=== PATIENT | male | born 1950 | race Caucasian/White ===

== ENCOUNTER 2016-12-25 13:45 | Emergency (ER) | payer MEDICARE, OTHER ==
--- NOTE | 2016-12-25 14:12 | Emergency Department Record ---
History of Present Illness - General Chief complaint: Male Urogenital Problem Stated complaint: THINK I HAVE A KIDNEY STONE Time Seen by Provider: 12/25/16 14:12 Source: Patient Mode of Arrival: Ambulatory Limitations: No limitations - History of Present Illness Initial comments: The patient is here due to L lower back pain for the last 3 days. The pain is sharp and stabbing and increases with movement and twisting. He denies any AP, nausea, vomiting, fever or dysuria. The patient does have a hx of kidney stones and feels like he may have another one. MD Complaint: Other Onset/Timin -: Days(s) Location: Left flank Radiation: Back Severity scale (1-10): 3 Quality: Aching Consistency: Constant Improves with: None Worsens with: Movement, Other Reports: Denies other symptoms - Related Data Home Medications Medication Instructions Recorded Confirmed Last Taken Amlodipine Besylate/Benazepril 1 each PO BID 01/10/14 12/25/16 01/10/14 09:00 [Lotrel 5-20 mg Capsule] Ascorbic Acid [Vitamin C] 500 mg PO DAILY 01/10/14 12/25/16 01/10/14 09:00 Carvedilol Phosphate [Coreg Cr] 10 mg PO DAILY 01/10/14 12/25/16 01/10/14 09:00 Cholecalciferol (Vitamin D3) 2,000 unit PO DAILY 01/10/14 12/25/16 01/10/14 09: 00 [Vitamin D] Clonidine HCl [Catapres] 0.2 mg PO BID 01/10/14 12/25/16 02/28/15 Eszopiclone [Lunesta] 3 mg PO Q48H 01/10/14 12/25/16 01/08/14 21:00 Latanoprost [Xalatan] 2.5 ml OP QHS 01/10/14 12/25/16 02/28/15 Magnesium Oxide [Magnesium] 800 mg PO DAILY 01/10/14 12/25/16 01/10/14 09:00 [place]-3 Fatty Acids/Fish Oil [Fish 1 each PO BID 01/10/14 12/25/16 01/10/14 09: 00 Oil 1,000 mg Softgel] Potassium Chloride [Klor-Con M20] 40 meq PO BID 01/10/14 12/25/1602/28/15 Loratadine [Claritin] 10 mg PO DAILY 02/21/15 12/25/16 Unknown Multivitamin [Multi-Vitamin Daily] 1 each PO DAILY 02/21/15 12/25/16 Unknown Timolol Maleate [Timoptic] 5 ml OP QAM 02/21/15 12/25/16 Unknown Finasteride [Proscar] 5 mg PO QHS 03/01/15 12/25/16 02/28/15 Allergies Allergy/AdvReac Type Severity Reaction Status Date / Time Penicillins [PENICILLINS] Allergy Severe "I passed Verified 02/19/15 15:25 out" Travel Screening - Travel/Exposure Within Last 30 Days Have you traveled within the last 30 days?: No Review of Systems Constitutional: Denies: Chills, Fever, Malaise Eyes: Denies: Eye discharge ENT: Denies: Congestion, Throat pain Respiratory: Denies: Cough, Dyspnea Past Medical History - SOCIAL HISTORY Smoking Status: Former smoker - RESPIRATORY Hx Respiratory Disorders: Yes Hx Sleep Apnea: Yes Hx of CPAP: Yes (pt doesn't wear it) - CARDIOVASCULAR Hx Cardio Disorders: Yes Comment:: Afib - NEURO Hx Neuro Disorders: Yes Comment:: tested for why passing out --unable to find out cause - GI Hx GI Disorders: Yes Hx Wt Loss/Wt Gain: Yes (25lb gain since retired 1yr ago) - Hx Genitourinary Disorders: Yes Hx Kidney Stones: Yes Hx Prostate Problems: Yes (BPH) - ENDOCRINE Hx Endocrine Disorders: No - MUSCULOSKELETAL Hx Musculoskeletal Disorders: Yes Hx Back Injury: Yes - PSYCH Hx Psych Problems: Yes Hx Anxiety: Yes - HEMATOLOGY/ONCOLOGY Hx Hematology/Oncology Disorders: No Family Medical History Any Significant Family History?: Yes Hx Cancer: Father Physical Exam - General General Appearance: Alert, Oriented x3, Cooperative, No acute distress - Head Head exam: Atraumatic, Normocephalic, Normal inspection - Eye Eye exam: Normal appearance, PERRL - ENT ENT exam: Normal exam, Mucous membranes moist, Normal external ear exam, Normal orophraynx, TM's normal bilaterally Throat exam: Normal inspection. negative: Tonsillar erythema, Tonsillar exudate - Neck Neck exam: Normal inspection, Full ROM. negative: Tenderness - Respiratory Respiratory exam: Normal lung sounds bilaterally. negative: Respiratory distress - Cardiovascular Cardiovascular Exam: Regular rate, Normal rhythm, Normal heart sounds - GI/Abdominal GI/Abdominal exam: Soft, Normal bowel sounds. negative: Rebound, Rigid, Tenderness - Back Back exam: Reports: Normal inspection, Paraspinal tenderness (There is L lower lumbar paraspinal tenderness that exactly reproduces the patient's flank pain.) . Denies: Vertebral tenderness - Neurological Neurological exam: Alert, Normal gait. negative: Abnormal gait, Motor sensory deficit Course Vital Signs 12/25/16 12/25/16 14:01 14:04 Temperature 98.0 F Pulse Rate 60 Respiratory 18 Rate Blood Pressure 214/119 [Left Arm] Pulse Ox 98 - Reevaluation(s) Reevaluation #1: The patient is resting comfortably with no pain or discomfort unless he is moving. I explained to him that his workup is all WNL's for him. I told him he clearly does not have a kidney stone and I do believe his pain is due to a muscle strain. He is to see his PCP next week for recheck and to also recheck his BP due to it being elevated. The patient states he has severe HTN and it normally is high like it is today. 12/25/16 15:39 Medical Decision Making - Data Complexity MDM Data: Labs Ordered and/or Reviewed, X-Ray Ordered and/or Reviewed - Lab Data Result diagrams: 12/25/16 14:35 12/25/16 14:35 - Radiology Data Radiology results: Report reviewed (Abd CT: Multiple old changes with no acute stone or hydro.) Disposition Disposition: Discharge Clinical Impression: Strain of muscle, fascia and tendon of lower back, initial encounter Disposition: Home, Self-Care Condition: (1) Good Instructions: Low Back Strain (ED) Additional Instructions: Please take your home pain medicines as needed. Please see your PCP next week for recheck and to also recheck your blood pressure. Return to the ER if worse. Forms: Patient Portal Access Time of Disposition: 15:38
[2016-12-25] MEDS ORDERED: ACETAMINOPHEN 325 MG TAB PO ONE (14:20)
[2016-12-25 14:54] LABS: BASO % 0.5 % (0-6); EOS % 1.3 % (0-6); GRAN % 66.8 % (47-80); HEMATOCRIT 40.9 % (42.0-52.0); HEMOGLOBIN 13.7 gm/dl (14.0-18.0); LYMPH % 24.7 % (16-45); MEAN CELL VOLUME 91.3 fl (81-97); MEAN CORPUSCULAR HGB CONC 33.5 g/dl (32-36); MEAN PLATELET VOLUME 9.7 fl (7.4-10.4); MONO % 6.7 % (0-9); PLATELET COUNT 218 K/uL (130-400); RED BLOOD COUNT 4.48 M/uL (4.40-5.70); RED CELL DISTRIBUTION WIDTH 13.1 % (11.5-14.5); URINE APPEARANCE SL CLOUDY; URINE BILIRUBIN NEGATIVE (NEGATIVE); URINE BLOOD NEGATIVE (NEGATIVE); URINE COLOR YELLOW; URINE GLUCOSE (UA) NEGATIVE (NEGATIVE); URINE KETONE NEGATIVE (NEGATIVE); URINE LEUKOCYTE ESTERASE NEGATIVE (NEGATIVE); URINE NITRITE NEGATIVE (NEGATIVE); URINE PROTEIN NEGATIVE (NEGATIVE); URINE UROBILINOGEN 0.2 E.U./dL (0.20 - 1.00); WHITE BLOOD COUNT W/O DIFF 6.2 K/uL (4.2-12.2)
[2016-12-25 14:55] LABS: MEAN CORPUSCULAR HEMOGLOBIN 30.5 pg (27-33)
[2016-12-25 15:05] LABS: ANION GAP 6.1 (7-16); BLOOD UREA NITROGEN 20 mg/dL (9-20); CARBON DIOXIDE 29.9 mmol/L (22-30); CREATININE 0.8 mg/dL (0.66-1.25); EST GLOMERULAR FILTRATION RATE > 60 ml/min; GLUCOSE,RANDOM 96 mg/dL (70-110)
== END 2016-12-25 16:00 | disposition home or self-care (01) ==
LOC: ER 13:45
DX: S39.012A Strain of muscle, fascia and tendon of lower back, initial encounter (principal); X58.XXXA Exposure to other specified factors, initial encounter; I10 Essential (primary) hypertension; Z87.891 Personal history of nicotine dependence; Z87.442 Personal history of urinary calculi
CPT/HCPCS: 74176; 80048; 81003; 85025; 99283; 99284

== ENCOUNTER 2017-05-13 12:01 | Day surgery (SDC) | payer MEDICARE, OTHER ==
[2017-05-13] MEDS ORDERED: FENTANYL PF 100MCG/2ML VIAL IV ONE (14:00)
[2017-05-13] MEDS ORDERED: PROPOFOL 10 MG/ML VIAL IV ONE (14:00)
[2017-05-13] MEDS ORDERED: LIDOCAINE 2% MDV (20MG/ML) 20ML VIAL IV ONE (14:00)
--- NOTE | 2017-05-18 17:31 | Operative Note ---
DATE OF SURGERY: 05/13/2017 OPERATION: ESOPHAGOGASTRODUODENOSCOPY with biopsy. PREOPERATIVE DIAGNOSIS: Heartburn and dysphagia? POSTOPERATIVE DIAGNOSES: 1. Erythematous GE junction. 2. Rule out eosinophilic esophagitis. PROCEDURE: After informed consent was obtained from the patient, he was placed in the left lateral decubitus position in the endoscopy suite, sedated and monitored by the department of anesthesia. Once sedated, a well-lubricated [id number] gastroscope was placed in the posterior oropharynx and under direct visualization passed to the proximal esophagus. The endoscope was advanced through the proximal, mid, and distal esophagus. The GE junction demonstrated some mild erythema and slight irregularity. The remainder of the esophagus was unremarkable. No strictures, varices, or mass lesions were seen. The gastric body and the antrum as well as the pylorus, duodenal bulb, and sweep were unremarkable. J-turn views of the proximal stomach were unremarkable. The endoscope was then straightened. The GE junction was biopsied. The mid esophagus was biopsied with no new findings or abnormalities identified upon retraction of the endoscope. RECOMMENDATIONS: I would suggest the patient resume his PPI and we will await the results of biopsies. As always, thank you for allowing me to participate in the healthcare of your patients. CC: Bialee DICKENS
== END 2017-05-13 13:50 | disposition home or self-care (01) ==
LOC: HOP 12:01
PROVIDERS: ATTEND Internal Medicine Gastroenterology
DX: K21.0 Gastro-esophageal reflux disease with esophagitis (principal); K31.89 Other diseases of stomach and duodenum; K22.8 Other specified diseases of esophagus
CPT/HCPCS: 43235; 00740; 88305; 88312; 88313; J3010

== ENCOUNTER 2017-10-04 15:11 | Emergency (ER) | payer MEDICARE, OTHER ==
--- NOTE | 2017-10-04 15:51 | Emergency Department Record ---
History of Present Illness - General Chief complaint: Flank Pain Stated complaint: POSS KIDNEY STONE Time Seen by Provider: 10/04/17 15:50 Source: Patient Mode of Arrival: Ambulatory Limitations: No limitations - History of Present Illness Initial comments: The patient is here due to a 2 day hx of R flank pain with intermittent radiation to the RLQ. The pain is sharp and stabbing. The onset was yesterday and today the pain is improved and now only present with movement or twisting. There is no AP, fever, chills, nausea, vomiting, diarrhea but the patient does have mild dysuria. MD Complaint: Other Onset/Timin -: Days(s) Location: Right flank Radiation: RLQ Severity scale (1-10): 4 Quality: Aching Consistency: Constant Improves with: None Worsens with: None Reports: Denies other symptoms - Related Data Home Medications Medication Instructions Recorded Confirmed Last Taken Dabigatran Etexilate Mesylate 150 mg PO DAILY 10/04/17 10/04/17 Unknown [Pradaxa] Lorazepam [Ativan] 1 mg PO QHS 10/04/17 10/04/17 Unknown Zolpidem Tartrate [Ambien] 10 mg PO QHS 10/04/17 10/04/17 Unknown Allergies Allergy/AdvReac Type Severity Reaction Status Date / Time Penicillins [PENICILLINS] Allergy Severe "I passed Verified 02/19/15 15:25 out" Travel Screening - Travel/Exposure Within Last 30 Days Have you traveled within the last 30 days?: No Review of Systems Constitutional: Denies: Chills, Fever Eyes: Denies: Eye discharge ENT: Denies: Congestion Respiratory: Denies: Cough, Dyspnea Past Medical History - SOCIAL HISTORY Smoking Status: Former smoker - RESPIRATORY Hx Respiratory Disorders: Yes Hx Sleep Apnea: Yes Hx of CPAP: Yes (pt doesn't wear it) - CARDIOVASCULAR Hx Cardio Disorders: Yes Hx Hypertension: Yes Hx Irregular Heartbeat: Yes Comment:: Afib - NEURO Hx Neuro Disorders: Yes Comment:: tested for why passing out --unable to find out cause - GI Hx GI Disorders: No Hx Wt Loss/Wt Gain: Yes - Hx Genitourinary Disorders: Yes Hx Kidney Stones: Yes Hx Prostate Problems: Yes (BPH) - ENDOCRINE Hx Endocrine Disorders: No - MUSCULOSKELETAL Hx Musculoskeletal Disorders: Yes Hx Back Injury: Yes - PSYCH Hx Psych Problems: Yes Hx Anxiety: Yes - HEMATOLOGY/ONCOLOGY Hx Hematology/Oncology Disorders: No Family Medical History Any Significant Family History?: Yes Hx Cancer: Father Physical Exam - General General Appearance: Alert, Oriented x3, Cooperative, No acute distress - Head Head exam: Atraumatic, Normocephalic, Normal inspection - Eye Eye exam: Normal appearance, PERRL - Neck Neck exam: Normal inspection, Full ROM. negative: Tenderness - Respiratory Respiratory exam: Normal lung sounds bilaterally. negative: Respiratory distress - Cardiovascular Cardiovascular Exam: Regular rate, Normal rhythm, Normal heart sounds - GI/Abdominal GI/Abdominal exam: Soft, Normal bowel sounds. negative: Distended, Rebound, Rigid, Tenderness - Extremities Extremities exam: Normal inspection, Full ROM, Normal capillary refill. negative: Tenderness - Back Back exam: Reports: Normal inspection, Full ROM. Denies: CVA tenderness (L), Muscle spasm, Rash noted, Tenderness Course Vital Signs 10/04/17 15:28 Temperature 98.2 F Pulse Rate 65 Respiratory 18 Rate Blood Pressure 175/109 Pulse Ox 99 - Reevaluation(s) Reevaluation #1: The patient is doing very well at this time. He denies any pain or discomfort and is ready for home. I did explain to him the CT is neg for any acute changes and he is to see his PCP later this week for recheck. 10/04/17 18:04 10/04/17 18:04 Medical Decision Making - Data Complexity MDM Data: Labs Ordered and/or Reviewed, X-Ray Ordered and/or Reviewed - Lab Data Result diagrams: 10/04/17 16:10 10/04/17 16:10 - Radiology Data Radiology results: Report reviewed (Abd CT: Neg for any acute abnormality.) Disposition Disposition: Discharge Clinical Impression: Flank pain, acute Disposition: Home, Self-Care Condition: (2) Stable Instructions: Flank Pain (ED) Additional Instructions: Please continue your regular medicines for pain and your blood pressure. Please see your PCP for recheck later this week. Return to the ER for any worsening symptoms. Forms: Patient Portal Access Time of Disposition: 18:05 Quality - Quality Measures Quality Measures: N/A - Blood Pressure Screening View Details: Yes Does Patient Have Any of the Following: No, Active Dx of HTN Blood Pressure Classification: Hypertensive Reading Systolic Measurement: 175 Diastolic Measurement: 109 Screening for High Blood Pressure: Patient Exclusion, Hx of HTN [R7324]
[2017-10-04] MEDS ORDERED: ONDANSETRON HCL IV 4 MG/2 ML VIAL IV ONE (15:54)
[2017-10-04] MEDS ORDERED: SODIUM CHLORIDE 0.9% 500 ML IV ONE (15:54)
[2017-10-04] MEDS ORDERED: HYDROCODONE/APAP 5/325MG TABLET PO ONE (15:54)
[2017-10-04 16:21] LABS: BASO % 0.2 % (0-6); EOS % 2.3 % (0-6); GRAN % 61.2 % (47-80); HEMATOCRIT 40.9 % (42.0-52.0); HEMOGLOBIN 14.1 gm/dl (14.0-18.0); LYMPH % 28.3 % (16-45); MEAN CELL VOLUME 89.9 fl (81-97); MEAN CORPUSCULAR HGB CONC 34.5 g/dl (32-36); MEAN PLATELET VOLUME 9.8 fl (7.4-10.4); PLATELET COUNT 215 K/uL (130-400); RED BLOOD COUNT 4.55 M/uL (4.40-5.70); RED CELL DISTRIBUTION WIDTH 12.9 % (11.5-14.5); URINE APPEARANCE CLEAR; URINE BILIRUBIN NEGATIVE (NEGATIVE); URINE BLOOD TRACE-I (NEGATIVE); URINE COLOR YELLOW; URINE GLUCOSE (UA) NEGATIVE (NEGATIVE); URINE KETONE NEGATIVE (NEGATIVE); URINE LEUKOCYTE ESTERASE NEGATIVE (NEGATIVE); URINE NITRITE NEGATIVE (NEGATIVE); URINE PROTEIN NEGATIVE (NEGATIVE); URINE UROBILINOGEN 0.2 E.U./dL (0.20 - 1.00); WHITE BLOOD COUNT W/O DIFF 5.3 K/uL (4.2-12.2)
[2017-10-04 16:30] LABS: URINE AMORPHOUS SEDIMENT 1+; URINE BACTERIA NONE SEEN; URINE EPITHELIAL CELLS NONE SEEN (FEW); URINE WBC NONE SEEN (0-2/hpf)
[2017-10-04 16:34] LABS: INR 1.24; PARTIAL THROMBOPLASTIN TIME 39.6 SECONDS (24.5-39.1); PROTHROMBIN TIME (PATIENT) 13.4 SECONDS (9.5-12.1)
[2017-10-04 16:40] LABS: BLOOD UREA NITROGEN 17 mg/dL (8-23); CREATININE 0.8 mg/dL (0.7-1.2); EST GLOMERULAR FILTRATION RATE > 60 mL/min
[2017-10-04 16:42] LABS: GLUCOSE,RANDOM 99 mg/dL (74-109)
[2017-10-04 16:45] LABS: ALKALINE PHOSPHATASE 60 U/L (40-129); ALT/SGPT 13 U/L (<41); AST/SGOT 11 U/L (10.0-50.0); BILIRUBIN,DIRECT < 0.2 mg/dL (0-0.3)
--- NOTE | 2017-10-05 10:00 | CT SCAN REPORT ---
EXAM: EMERGENCY CT OF THE ABDOMEN AND PELVIS WITHOUT CONTRAST HISTORY: ACUTE RIGHT FLANK PAIN FOR THREE DAYS, HISTORY OF PRIOR URINARY CALCIFICATIONS. TECHNIQUE: Axial CT scan of the abdomen and pelvis was performed without oral or IV contrast. Comparison: CT of the abdomen and pelvis 12/25/16. FINDINGS: There is at least one tiny calcification in the right kidney within the upper pole also present previously consistent with a tiny currently nonobstructing intrarenal calculus on the right. None seen on the left. No definite hydronephrosis or hydroureter identified on the right, however. There is again noted to be some artifact in the pelvis related to the metallic components of the right MAICOL. Allowing for this, no definite right sided ureteral calculus seen. No bladder calculus identified. There is no hydronephrosis or hydroureter is seen on the left. Both the right and left ureter are difficult to follow in their entire course throughout the retroperitoneum and pelvis in their nondilated state, but no definite left ureteral calculus seen as well. There are various pelvic calcifications particularly on the left which are probably vascular in nature. The prostate again appears enlarged similar to before and contain some calcifications with the prostate measuring approximately 6.2 x 4.6 cm in size similar to before. There are bilateral single low attenuation exophytic renal masses also appearing essentially unchanged. These are incompletely evaluated without IV contrast, but are presumably renal cysts. There may be a very tiny new exophytic cyst on the right kidney laterally as well. Numerous small calcifications in the dependent portion of the gallbladder again seen consistent with cholelithiasis. No additional findings to suggest acute cholecystitis currently. Multiple small low attenuation foci in the liver again seen as before also incompletely evaluated without IV contrast, but presumably represent multiple hepatic cysts. Single bilateral adrenal nodules again noted appearing unchanged and presumably incidental adrenal adenomas. Evaluation of the bowel and viscera is actually quite limited without oral or IV contrast, but given this limitation, no definite new hepatic, splenic, adrenal, or pancreatic mass identified. There is probably a second very small nodule in the right adrenal which was present previously as well. There is a prominent amount of stool in the colon. The appendix is not well seen without contrast, but no definite appendicitis identified. No free intraperitoneal air or free intraperitoneal fluid identified. Bilateral spondylolysis of L5 with spondylolisthesis of L5 on S1 as before. Postop right MAICOL again evident. IMPRESSION: 1. AT LEAST ONE TINY CURRENTLY NONOBSTRUCTING INTRARENAL CALCULUS IN THE RIGHT KIDNEY, BUT NO DEFINITE HYDRONEPHROSIS OR URETERAL CALCULUS ON EITHER SIDE. 2. ENLARGED PROSTATE SIMILAR TO BEFORE CONTAINING SOME CALCIFICATIONS. 3. POSTOP RIGHT MAICOL BEFORE. 4. STABLE SMALL ADRENAL NODULES BEFORE, ONE ON THE LEFT AND TWO ON THE RIGHT. 5. MULTIPLE SMALL LOW ATTENUATION MASSES IN THE LIVER BEFORE. 6. CHOLELITHIASIS AGAIN EVIDENT. 7. SMALL BILATERAL PRESUMED RENAL CYSTS BEFORE WITH PROBABLY A NEW TINY CYST LATERALLY IN THE RIGHT KIDNEY. 8. BILATERAL SPONDYLOLYSIS OF L5 WITH SPONDYLOLISTHESIS OF L5 ON S1 BEFORE. JOB NUMBER: [id number] [facility]
== END 2017-10-04 18:16 | disposition home or self-care (01) ==
LOC: ER 15:11
DX: R10.31 Right lower quadrant pain (principal); R30.0 Dysuria; I10 Essential (primary) hypertension; I48.91 Unspecified atrial fibrillation; Z87.891 Personal history of nicotine dependence
CPT/HCPCS: 74176; 80048; 80076; 81001; 85025; 85610; 85730; 96374; 99284

== ENCOUNTER 2017-10-26 13:16 | Emergency (ER) | payer MEDICARE, OTHER ==
--- NOTE | 2017-10-26 13:29 | Emergency Department Record ---
History of Present Illness - General Chief Complaint: Chest Pain Stated Complaint: CHEST PAIN Time Seen by Provider: 10/26/17 13:21 Source: Patient, Family Mode of Arrival: Ambulatory Limitations: No limitations - History of Present Illness Initial Comments: 67 yo male presents with a mid to left sided chest pain that started at 7:30- 8am. The pain radiates to the left neck and left jaw. It does not radiate to the back. The pain came on at rest. The patient states he has a history of atrial fibrillation but no stents or CAD. He has had atrial fibrillation in the last 3 weeks. He does not recall his last stress test. No nausea or vomiting. No sweating. The pain is essential resolved at the time of this interview. No other recent changes in his health in the last few weeks. Casing Man is Dr Ip. FOURNIER Complaint: Chest pain -: Hour(s) (4 hours) Onset: During rest Pain Location: Left chest Pain Radiation: Neck, Jaw/teeth Severity: Moderate Quality: Aching Consistency: Constant Improves With: Nothing, Rest Worsens With: Other (resolving on its own) Context: Other (Hx of atrial fibrillation) Treatments Prior to Arrival: None - Related Data Home Medications Medication Instructions Recorded Confirmed Last Taken Mirtazapine 7.5 mg PO DAILY 10/26/17 10/26/17 Unknown Allergies Allergy/AdvReac Type Severity Reaction Status Date / Time Penicillins [PENICILLINS] Allergy Severe "I passed Verified 02/19/15 15:25 out" Review of Systems Constitutional: Denies: Chills, Fever, Malaise, Weakness Eyes: Denies: Eye discharge ENT: Denies: Congestion, Throat pain Respiratory: Denies: Cough, Dyspnea, Hemoptysis, Stridor, Wheezes Cardiovascular: Reports: Chest pain, Palpitations. Denies: Syncope Endocrine: Denies: Fatigue, Polydipsia, Polyuria Gastrointestinal: Denies: Abdominal pain, Diarrhea, Nausea, Vomiting Genitourinary: Denies: Dysuria, Frequency Musculoskeletal: Denies: Arthralgia, Back pain, Joint swelling, Myalgia Skin: Denies: Bruising, Change in color, Rash Neurological: Denies: Headache, Numbness, Weakness Psychiatric: Denies: Anxiety Hematological/Lymphatic: Denies: Blood Clots, Easy bleeding, Easy bruising, Swollen glands Past Medical History - SOCIAL HISTORY Smoking Status: Former smoker - RESPIRATORY Hx Respiratory Disorders: Yes Hx Sleep Apnea: Yes Hx of CPAP: Yes (pt doesn't wear it) - CARDIOVASCULAR Hx Cardio Disorders: Yes Hx Hypertension: Yes Hx Irregular Heartbeat: Yes Comment:: Afib - NEURO Hx Neuro Disorders: Yes Comment:: tested for why passing out --unable to find out cause - GI Hx GI Disorders: No Hx Wt Loss/Wt Gain: Yes - Hx Genitourinary Disorders: Yes Hx Kidney Stones: Yes Hx Prostate Problems: Yes (BPH) - ENDOCRINE Hx Endocrine Disorders: No - MUSCULOSKELETAL Hx Musculoskeletal Disorders: Yes Hx Back Injury: Yes - PSYCH Hx Psych Problems: Yes Hx Anxiety: Yes - HEMATOLOGY/ONCOLOGY Hx Hematology/Oncology Disorders: No Family Medical History Hx Cancer: Father Physical Exam - General General Appearance: Alert, Oriented x3, Cooperative, No acute distress Limitations: No limitations - Head Head exam: Normal inspection - Eye Eye exam: Normal appearance, PERRL. negative: Conjunctival injection, Scleral icterus - ENT ENT exam: Normal exam, Mucous membranes moist Ear exam: Normal external inspection Nasal Exam: Normal inspection Mouth exam: Normal external inspection Teeth exam: Normal inspection - Neck Neck exam: Normal inspection, Full ROM. negative: Tenderness - Respiratory Respiratory exam: Normal lung sounds bilaterally. negative: Accessory muscle use, Chest wall tenderness, Decreased breath sounds, Respiratory distress - Cardiovascular Cardiovascular Exam: Regular rate, Normal rhythm, Normal heart sounds Peripheral Pulses: 2+: Radial (R), Radial (L) - GI/Abdominal GI/Abdominal exam: Soft. negative: Tenderness - Rectal Rectal exam: Deferred - exam: Deferred - Extremities Extremities exam: Normal inspection, Full ROM, Normal capillary refill. negative: Tenderness - Back Back exam: Denies: CVA tenderness (R), CVA tenderness (L) - Neurological Neurological exam: Alert, Normal gait, Oriented X3 - Psychiatric Psychiatric exam: Normal affect, Normal mood - Skin Skin exam: Dry, Intact, Normal color, Warm Course - Reevaluation(s) Reevaluation #1: EKG Rate 114, intervals normal, axis normal, ST NS ST minimal depression anterior lateral. Prior [facility] E[facility] [address] changes. Patient reports he was cardioverted in 10/26/17 13:28 10/26/17 13:35 The patient states there is no pain or discomfort at this time HR is AF at 132 10/26/17 14:14 Cardizem drip started The labs were reviewed The Troponin is 0.01 The BNP is mildly elevated The rate is still 110-120 Cardizem increased One Call at [facility] will be contacted to discuss with his code machine operator The chest XR reviewed 10/26/17 14:[address] Almanza of [facility] Given the chest pain was a new symptoms I recommend evaluation at [facility] with cardiology and EP for the afib if needed The patient is improved on the Cardizem drip to a rate of 89. Dr Almanza accepts the transfer to [facility] 10/26/17 15:11 After a long conversation the patient has decided he will not consent to transfer. He understands the risks and benefits of transfer to see a code machine operator today and and EP code machine operator. I explained a heart attack has not been ruled out and further testing is recommended. He understands and understands the AMA process. He will sign out AMA with the understand of the risks. He understands he can return any time and to be seen immediately if any concerns. Medical Decision Making - Lab Data Result diagrams: 10/26/17 13:30 10/26/17 13:30 Disposition Disposition: Discharge Clinical Impression: Atrial fibrillation, Chest pain, Left against medical advice Disposition: Home, Self-Care Transfer To: [facility] Reason For Transfer: chest pain afib Condition: (3) Guarded Instructions: Chest Pain (ED), Against Medical Advice (ED) Additional Instructions: Return anytime or be seen if you have any concerns Call your doctor tomorrow for very close followup Forms: Patient Portal Access Time of Disposition: 15:14 Quality - Quality Measures Quality Measures: N/A - Blood Pressure Screening Does Patient Have Any of the Following: Active Dx of HTN Blood Pressure Classification: Pre-Hypertensive BP Reading Systolic Measurement: 129 Diastolic Measurement: 84 Screening for High Blood Pressure: Patient Exclusion, Hx of HTN [[id number]]
[2017-10-26 13:41] LABS: BASO % 0.4 % (0-6); EOS % 1.3 % (0-6); GRAN % 61.3 % (47-80); HEMATOCRIT 39.9 % (42.0-52.0); HEMOGLOBIN 13.8 gm/dl (14.0-18.0); LYMPH % 28.5 % (16-45); MEAN CELL VOLUME 89.5 fl (81-97); MEAN CORPUSCULAR HEMOGLOBIN 30.9 pg (27-33); MEAN CORPUSCULAR HGB CONC 34.6 g/dl (32-36); MEAN PLATELET VOLUME 9.2 fl (7.4-10.4); MONO % 8.5 % (0-9); PLATELET COUNT 225 K/uL (130-400); RED BLOOD COUNT 4.46 M/uL (4.40-5.70); WHITE BLOOD COUNT W/O DIFF 5.5 K/uL (4.2-12.2)
[2017-10-26] MEDS ORDERED: DILTIAZEM HCL 125 MG in 0.9 % SODIUM CHLORIDE 100ML 100 ML IV SCH (13:45)
[2017-10-26 13:51] LABS: BLOOD UREA NITROGEN 17 mg/dL (8-23); CREATININE 0.7 mg/dL (0.7-1.2); EST GLOMERULAR FILTRATION RATE > 60 mL/min
[2017-10-26 13:52] LABS: TOTAL PROTEIN 6.6 g/dL (6.6-8.7)
[2017-10-26 13:54] LABS: GLUCOSE,RANDOM 109 mg/dL (74-109); INR 1.3; PROTHROMBIN TIME (PATIENT) 13.9 SECONDS (9.5-12.1)
[2017-10-26 13:56] LABS: ALB/GLOB RATIO 1.4 (1.1-1.8); ALBUMIN 3.8 g/dL (4.0-5.0); ALKALINE PHOSPHATASE 52 U/L (40-129); ALT/SGPT 14 U/L (<41); AST/SGOT 15 U/L (10.0-50.0); CREATINE PHOSPHOKINASE 37 U/L (39-308)
[2017-10-26 13:59] LABS: CKMB 1.1 ng/mL (<6.73)
--- NOTE | 2017-10-27 08:56 | RADIOLOGY REPORT ---
EXAM: CHEST, SINGLE VIEW HISTORY: LEFT SIDED CHEST PAIN. TECHNIQUE: A single AP upright portable view of the chest was obtained. Comparison: Portable chest 02/14/10. FINDINGS: The heart size remains at about the upper limits of normal allowing for the AP positioning. Mild torsion of the aorta. No definite acute infiltrate seen. No pleural effusion or pneumothorax evident. Hypertrophic spurring in the spine. Degenerative arthritis left shoulder. The patient is rotated slightly towards the right. IMPRESSION: 1. MILD PROMINENCE OF THE HEART SIZE BEFORE. 2. CALCIFICATION AND TORSION OF THE AORTA. 3. NO ACUTE INFILTRATE EVIDENT. 4. DEGENERATIVE ARTHRITIS LEFT SHOULDER. JOB [facility]BER: [id number] [facility]
== END 2017-10-26 15:32 | disposition home or self-care (01) ==
LOC: ER 13:16
DX: I48.91 Unspecified atrial fibrillation (principal); R07.9 Chest pain, unspecified; I10 Essential (primary) hypertension; Z87.891 Personal history of nicotine dependence
CPT/HCPCS: 71045; 80053; 82550; 82553; 83735; 83880; 84484; 85025; 85610; 85730; 93005; 93010; 96365; 99284

== ENCOUNTER 2018-01-05 17:03 | Emergency (ER) | payer MEDICARE, OTHER ==
[2018-01-05 17:29] LABS: URINE APPEARANCE CLEAR; URINE BILIRUBIN NEGATIVE (NEGATIVE); URINE BLOOD LARGE (NEGATIVE); URINE COLOR YELLOW; URINE GLUCOSE (UA) NEGATIVE (NEGATIVE); URINE KETONE NEGATIVE (NEGATIVE); URINE LEUKOCYTE ESTERASE SMALL (NEGATIVE); URINE NITRITE NEGATIVE (NEGATIVE); URINE UROBILINOGEN 0.2 E.U./dL (0.20 - 1.00)
--- NOTE | 2018-01-05 17:35 | Emergency Department Record ---
History of Present Illness - General Chief complaint: Male Urogenital Problem Stated complaint: BLOOD IN URINE Time Seen by Provider: 01/05/18 17:24 Source: Patient, RN notes reviewed Mode of Arrival: Ambulatory - History of Present Illness Initial comments: patient has blood in the urine started today and he ablation december 24 at [facility] and he had a so for 2 days. Patient on pradaxa for atrial fib MD Complaint: Other (hematuria) Onset/Timin -: Hour(s) Quality: Burning Reports: Blood in urine, Other - Related Data Home Medications Medication Instructions Recorded Confirmed Last Taken Magnesium 500 mg PO BID 01/05/18 01/05/18 01/05/18 Sotalol HCl [Betapace] 40 mg PO QHS 01/05/18 01/05/18 01/04/18 Sotalol HCl [Betapace] 80 mg PO DAILY 01/05/18 01/05/18 01/05/18 Previous Rx's Medication Instructions Recorded Sulfamethoxazole/Trimethoprim 1 each PO BID #20 tablet 01/05/18 [Bactrim Ds Tablet] Allergies Allergy/AdvReac Type Severity Reaction Status Date / Time Penicillins [PENICILLINS] Allergy Severe "I passed Verified 01/05/18 17:24 out" Travel Screening - Travel/Exposure Within Last 30 Days Have you traveled within the last 30 days?: No - Travel/Exposure Within Last Year Have you traveled outside the [place] in the last year?: No - Additonal Travel Details Have you been exposed to anyone with a communicable illness?: No - Travel Symptoms Symptom Screening: None Review of Systems Reviewed: No additional complaints except as noted below Constitutional: Reports: As per HPI. Denies: Chills, Fever, Malaise, Night sweats, Weakness, Weight change Eyes: Reports: As per HPI. Denies: Eye discharge, Eye pain, Photophobia, Vision change ENT: Reports: As per HPI. Denies: Congestion, Dental pain, Ear pain, Epistaxis , Hearing loss, Throat pain Respiratory: Reports: As per HPI. Denies: Cough, Dyspnea, Hemoptysis, Stridor, Wheezes Cardiovascular: Reports: As per HPI. Denies: Arrhythmia, Chest pain, Dyspnea on exertion, Edema, Murmurs, Orthopnea, Palpitations, Paroxysmal nocturnal dyspnea, Rheumatic Fever, Syncope Endocrine: Reports: As per HPI. Denies: Fatigue, Heat or cold intolerance, Polydipsia, Polyuria Gastrointestinal: Reports: As per HPI. Denies: Abdominal pain, Constipation, Diarrhea, Hematemesis, Hematochezia, Melena, Nausea, Vomiting Genitourinary: Reports: As per HPI. Denies: Dysuria, Frequency, Hematuria, Incontinence, Retention, Testicular pain, Testicular mass, Urgency Musculoskeletal: Reports: As per HPI. Denies: Arthralgia, Back pain, Gout, Joint swelling, Myalgia, Neck pain Skin: Reports: As per HPI. Denies: Bruising, Change in color, Change in hair/ nails, Lesions, Pruritus, Rash Neurological: Reports: As per HPI. Denies: Abnormal gait, Confusion, Headache, Numbness, Paresthesias, Seizure, Tingling, Tremors, Vertigo, Weakness Psychiatric: Reports: As per HPI. Denies: Anxiety, Auditory hallucinations, Depression, Homicidal thoughts, Suicidal thoughts, Visual hallucinations Hematological/Lymphatic: Reports: As per HPI. Denies: Anemia, Blood Clots, Easy bleeding, Easy bruising, Swollen glands Past Medical History - SOCIAL HISTORY Smoking Status: Former smoker Alcohol Use: Rare Drug Use: None - RESPIRATORY Hx Respiratory Disorders: Yes Hx Sleep Apnea: Yes Hx of CPAP: Yes (pt doesn't wear it) - CARDIOVASCULAR Hx Cardio Disorders: Yes Hx Hypertension: Yes Hx Irregular Heartbeat: Yes Comment:: Afib - NEURO Hx Neuro Disorders: Yes Comment:: tested for why passing out --unable to find out cause - GI Hx GI Disorders: No Hx Wt Loss/Wt Gain: Yes - Hx Genitourinary Disorders: Yes Hx Kidney Stones: Yes Hx Prostate Problems: Yes (BPH) - ENDOCRINE Hx Endocrine Disorders: No - MUSCULOSKELETAL Hx Musculoskeletal Disorders: Yes Hx Back Injury: Yes - PSYCH Hx Psych Problems: Yes Hx Anxiety: Yes - HEMATOLOGY/ONCOLOGY Hx Hematology/Oncology Disorders: No Family Medical History Any Significant Family History?: No Hx Cancer: Father Physical Exam - General General Appearance: Alert, Oriented x3, Cooperative, No acute distress - Head Head exam: Normal inspection - Eye Eye exam: Normal appearance, PERRL Pupils: Normal accommodation - ENT ENT exam: Normal exam, Mucous membranes moist, Normal external ear exam, Normal orophraynx, TM's normal bilaterally Ear exam: Normal external inspection. negative: External canal tenderness Nasal Exam: Normal inspection. negative: Discharge, Sinus tenderness Mouth exam: Normal external inspection, Tongue normal Teeth exam: Normal inspection. negative: Dental caries Throat exam: Normal inspection. negative: Tonsillar erythema, Tonsillar exudate - Neck Neck exam: Normal inspection, Full ROM. negative: Tenderness - Respiratory Respiratory exam: Normal lung sounds bilaterally. negative: Respiratory distress - Cardiovascular Cardiovascular Exam: Regular rate, Normal rhythm, Normal heart sounds - GI/Abdominal GI/Abdominal exam: Soft, Normal bowel sounds. negative: Tenderness - Rectal Rectal exam: Deferred - exam: Deferred - Extremities Extremities exam: Normal inspection, Full ROM, Normal capillary refill. negative: Tenderness - Back Back exam: Reports: Normal inspection, Full ROM. Denies: Muscle spasm, Rash noted, Tenderness - Neurological Neurological exam: Alert, Normal gait, Oriented X3, Reflexes normal - Psychiatric Psychiatric exam: Normal affect, Normal mood - Skin Skin exam: Dry, Intact, Normal color, Warm Course Vital Signs 01/05/18 17:05 Temperature 97.9 F Pulse Rate 75 Respiratory 16 Rate Blood Pressure 161/99 Pulse Ox 98 - Reevaluation(s) Reevaluation #1: discussed case with [employer] adult probation officer and she recommended keeping pradaxa going unless the hematuria is bad than stop it 01/05/18 17:50 Reevaluation #2: Discussed case with Dr. Gloria LANGSTON adult probation officer 01/05/18 17:53 Medical Decision Making - Lab Data Result diagrams: 01/05/18 17:40 01/05/18 17:40 Disposition Clinical Impression: Hematuria Qualifiers: Hematuria type: gross Qualified Code(s): R31.0 - Gross hematuria UTI (urinary tract infection) Qualifiers: Urinary tract infection type: acute cystitis Hematuria presence: with hematuria Qualified Code(s): N30.01 - Acute cystitis with hematuria Disposition: Home, Self-Care Condition: (1) Good Instructions: Hematuria (ED), Urinary Traction Infection in Older Adults (ED) Additional Instructions: follow up with primary DR in one week call aircraft instrument mechanic if more bleeding Prescriptions: Sulfamethoxazole/Trimethoprim [Bactrim Ds Tablet] 1 each PO BID #20 tablet Forms: Patient Portal Access Time of Disposition: 17:58 Quality - Quality Measures Quality Measures: N/A - Blood Pressure Screening Does Patient Have Any of the Following: No, Active Dx of HTN Blood Pressure Classification: Hypertensive Reading Systolic Measurement: 161 Diastolic Measurement: 99 Screening for High Blood Pressure: Patient Exclusion, Hx of HTN [[id number]]
[2018-01-05 17:38] LABS: URINE BACTERIA FEW; URINE EPITHELIAL CELLS NONE SEEN (FEW); URINE RBC 36 - 50 (NONE SEEN); URINE WBC 16 - 20 (0-2/hpf)
[2018-01-05 17:47] LABS: BASO % 0.3 % (0-6); EOS % 0.8 % (0-6); GRAN % 71.9 % (47-80); HEMATOCRIT 36.5 % (42.0-52.0); HEMOGLOBIN 12.1 gm/dl (14.0-18.0); LYMPH % 20.2 % (16-45); MEAN CELL VOLUME 93.4 fl (81-97); MEAN CORPUSCULAR HEMOGLOBIN 30.9 pg (27-33); MEAN CORPUSCULAR HGB CONC 33.2 g/dl (32-36); MEAN PLATELET VOLUME 9.2 fl (7.4-10.4); MONO % 6.8 % (0-9); PLATELET COUNT 242 K/uL (130-400); RED BLOOD COUNT 3.91 M/uL (4.40-5.70); RED CELL DISTRIBUTION WIDTH 13.4 % (11.5-14.5); WHITE BLOOD COUNT W/O DIFF 7.6 K/uL (4.2-12.2)
[2018-01-05 18:00] LABS: BLOOD UREA NITROGEN 13 mg/dL (8-23); CREATININE 0.7 mg/dL (0.7-1.2); EST GLOMERULAR FILTRATION RATE > 60 mL/min; INR 1.1; PARTIAL THROMBOPLASTIN TIME 28.2 SECONDS (24.5-39.1); PROTHROMBIN TIME (PATIENT) 11.6 SECONDS (9.5-12.1)
[2018-01-05 18:03] LABS: GLUCOSE,RANDOM 100 mg/dL (74-109)
== END 2018-01-05 18:10 | disposition home or self-care (01) ==
LOC: ER 17:03
DX: N30.01 Acute cystitis with hematuria (principal); R30.0 Dysuria; I48.91 Unspecified atrial fibrillation; I10 Essential (primary) hypertension; Z87.891 Personal history of nicotine dependence; Z79.01 Long term (current) use of anticoagulants
CPT/HCPCS: 80048; 81001; 85025; 85610; 85730; 99283

== ENCOUNTER 2019-09-18 11:17 | Emergency (ER) | payer MEDICARE, OTHER ==
--- NOTE | 2019-09-18 11:36 | Emergency Department Record ---
History of Present Illness - General Chief Complaint: Fall Injury Stated Complaint: FALL/RIGHT HIP PAIN Time Seen by Provider: 09/18/19 11:31 Source: Patient, Family () Mode of Arrival: Wheelchair Limitations: No limitations - History of Present Illness Initial Comments: Pt from homo with after falling in home to right hip. Occurred about 5 pm yesterday when he caught his shoe on the carpet and lost balance and fell. Landed directly on right hip and then hit elbow. No elbow pain now. No head or neck injury or pain. Able to walk/shuffle with aid of a walker. Normally walks without pain or aid of walker. 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[employer] Fall Witnessed: No Place Fall Occurred: Home Loss of Consciousness: None Prolonged Down Time?: No Symptoms Prior to Fall: None Severity scale (1-10): 4 Quality: Aching Context: Tripped/slipped Associated Symptoms: Denies - Related Data Previous Rx's Medication Instructions Recorded Hydrocodone/Acetaminophen [Raymond 1 each PO Q6HR PRN 3 Days #10 09/18/19 5-325 Tablet] tablet Allergies Allergy/AdvReac Type Severity Reaction Status Date / Time Penicillins [PENICILLINS] Allergy Severe "I passed Verified 01/05/18 17:24 out" acetaminophen [From Percocet] Allergy NAUSEA AND Verified 09/18/19 11:31 VOMITING oxycodone [From Percocet] Allergy NAUSEA AND Verified 09/18/19 11:31 VOMITING Travel Screening - Travel/Exposure Within Last 30 Days Have you traveled within the last 30 days?: No Review of Systems Constitutional: Denies: Chills, Fever Eyes: Denies: Photophobia, Vision change ENT: Denies: Congestion Respiratory: Denies: Cough Cardiovascular: Denies: Chest pain, Palpitations, Syncope Endocrine: Denies: Fatigue Gastrointestinal: Denies: Abdominal pain, Nausea, Vomiting Musculoskeletal: Reports: As per HPI. Denies: Back pain, Joint swelling Skin: Denies: Bruising, Rash Neurological: Denies: Headache, Seizure, Tingling, Weakness Psychiatric: Denies: Anxiety Hematological/Lymphatic: Denies: Anemia Past Medical History - SOCIAL HISTORY Smoking Status: Former smoker - RESPIRATORY Hx Respiratory Disorders: Yes Hx Sleep Apnea: Yes Hx of CPAP: Yes (pt doesn't wear it) - CARDIOVASCULAR Hx Cardio Disorders: Yes Hx Hypertension: Yes Hx Irregular Heartbeat: Yes Comment:: Afib - NEURO Hx Neuro Disorders: Yes Comment:: tested for why passing out --unable to find out cause - GI Hx GI Disorders: No Hx Wt Loss/Wt Gain: Yes - Hx Genitourinary Disorders: Yes Hx Kidney Stones: Yes Hx Prostate Problems: Yes (BPH) - ENDOCRINE Hx Endocrine Disorders: No - MUSCULOSKELETAL Hx Musculoskeletal Disorders: Yes Hx Back Injury: Yes - PSYCH Hx Psych Problems: Yes Hx Anxiety: Yes - HEMATOLOGY/ONCOLOGY Hx Hematology/Oncology Disorders: No Family Medical History Any Significant Family History?: Yes Hx Cancer: Father Physical Exam - General General Appearance: Alert, Oriented x3, Cooperative, Moderate distress Limitations: No limitations - Head Head exam: Atraumatic, Normocephalic Head exam detail: negative: Contusion - Eye Eye exam: Normal appearance, PERRL - ENT ENT exam: Mucous membranes moist Nasal Exam: Normal inspection Mouth exam: Normal external inspection - Neck Neck exam: Normal inspection, Full ROM. negative: Tenderness - Respiratory Respiratory exam: Normal lung sounds bilaterally. negative: Respiratory distress, Rhonchi - Cardiovascular Cardiovascular Exam: Regular rate, Normal rhythm. negative: Tachycardia Peripheral Pulses: 2+: Radial (R), Radial (L) - GI/Abdominal GI/Abdominal exam: Soft, Normal bowel sounds. negative: Tenderness - Extremities Extremities exam: Normal inspection, Tenderness (over right lateral hip. Pain with log role right leg. Able to stand and bear weight. ) - Back Back exam: Reports: Normal inspection. Denies: Paraspinal tenderness - Neurological Neurological exam: Alert, Oriented X3. negative: Motor sensory deficit - Psychiatric Psychiatric exam: Normal affect, Normal mood - Skin Skin exam: Normal color Type of lesion: negative: abrasion Course Vital Signs 09/18/19 11:22 Temperature 98.7 F Pulse Rate 55 L Respiratory 18 Rate Blood Pressure 151/97 Pulse Ox 95 - Reevaluation(s) Reevaluation #1: 09/18/19 12:11 Pt with Xray without fx or dislocation. Discussed treatmetn at home with tylenol days and Raymond at bedtime. LONG talk with pt and about narcotics and fall risk. Will use walker and will spot when up. Agrees with plan. Disposition Disposition: Discharge Clinical Impression: Fall Qualifiers: Encounter type: initial encounter Qualified Code(s): W19.XXXA - Unspecified fall, initial encounter Contusion of right hip Qualifiers: Encounter type: initial encounter Qualified Code(s): S70.01XA - Contusion of right hip, initial encounter Disposition: Home, Self-Care Condition: (1) Good Instructions: Fall Prevention for Older Adults (ED), Hip Contusion (ED) Additional Instructions: Rest. ICe to hip Monitor when taking Raymond for fall risk Do not take Raymond with Tylenol. Family doc recheck in 2 days. Possible need for PT evaluation. Return to the ED as needed Prescriptions: Hydrocodone/Acetaminophen [Raymond 5-325 Tablet] 1 each PO Q6HR PRN 3 Days #10 tablet PRN Reason: Pain - Mod To Severe (5-10) Forms: Patient Portal Access Time of Disposition: 12:16 Quality - Quality Measures Quality Measures: N/A - Blood Pressure Screening Does Patient Have Any of the Following: No Blood Pressure Classification: Hypertensive Reading Systolic Measurement: 151 Diastolic Measurement: 97 Screening for High Blood Pressure: Patient Exclusion, Hx of HTN [G9744]
--- NOTE | 2019-09-18 12:25 | RADIOLOGY REPORT ---
EXAMINATION: Right Hip Minimum Two Views EXAM DATE: 09/18/2019 11:59 AM TECHNIQUE: AP pelvis and right frog leg lateral hip views INDICATION: fall - hx hip replacement. COMPARISON: None ENCOUNTER: Initial FINDINGS: Postsurgical changes of right hip arthroplasty. No evidence of fracture. The right pubic ramus is unr emarkable. Degenerative changes in the inferior lumbar spine. IMPRESSION: No acute fracture in the right hip. There are postsurgical changes of right hip arthroplasty. Dictated by: Jacky El MD on 09/18/2019 12:23 PM. .
== END 2019-09-18 12:28 | disposition home or self-care (01) ==
LOC: ER 11:17
DX: S70.01XA Contusion of right hip, initial encounter (principal); W18.09XA Striking against other object with subsequent fall, initial encounter; Y92.009 Unspecified place in unspecified non-institutional (private) residence as the place of occurrence of the external cause; I10 Essential (primary) hypertension; Z87.891 Personal history of nicotine dependence; I48.91 Unspecified atrial fibrillation
CPT/HCPCS: 99283